=== PATIENT | female | born 1955 | race Caucasian/White ===

== ENCOUNTER 2019-01-26 07:32 | Day surgery (SDC) | payer MEDICARE, BC ==
[2019-01-26] MEDS ORDERED: Sodium Chloride 0.9% 1,000 ML IV SCH (08:00)
[2019-01-26] MEDS ORDERED: fentaNYL 100 MCG/2 ML SDV ONE (09:44)
[2019-01-26] MEDS ORDERED: Propofol 200 MG/20 ML SDV ONE ×2 (09:44→09:59)
[2019-01-26] MEDS ORDERED: Midazolam 1 MG/ML 2 ML SDV ONE (09:44)
[2019-01-26 11:45] VITALS: BP 155/87
--- NOTE | 2019-01-27 10:43 | PROC ---
DATE OF PROCEDURE: 01/26/2019 SURGEON: Tico Acosta MD INDICATION: This is a 63-year-old female, who comes in for a colonoscopy after having a positive Cologuard. The risks and benefits were explained to the patient and was taken to the OR. PROCEDURE IN DETAIL: Anesthesia was given by nurse licensed massage therapist. During the procedure, we used 2 mg of Versed, 2 mcg of fentanyl, and 350 mg of propofol. The Olympus 180AL scope was used, was placed into the rectum and advanced under direct vision. We did get to the cecum. Upon retraction of the tube, we noted a small lesion, 4 mm in size, at the ascending colon area. This was biopsied. The tube was slowly retracted and noted a polyp at the rectum, which was biopsied. This was 4 mm in size as well. There was poor colonic prep with a lot of fluid, took a lot of time to wash out the fluid, and the tube plugged up with food material multiple times. We did get good observation of the entire mucosa throughout the cecum to the rectum. The patient tolerated the procedure well, and the tube was removed. PREOPERATIVE DIAGNOSIS: Positive Cologuard. POSTOPERATIVE DIAGNOSIS: Polyp at mid-ascending and polyp at the rectum. These are very small. The specimens were sent to pathologist. Tico Acosta MD /[id number]
== END 2019-01-26 11:47 | disposition home or self-care (01) ==
LOC: JP.SDS 07:32
PROVIDERS: ATTEND Internal Medicine
DX: D12.2 Benign neoplasm of ascending colon (principal); D12.8 Benign neoplasm of rectum; K58.9 Irritable bowel syndrome, unspecified; E03.9 Hypothyroidism, unspecified; J44.9 Chronic obstructive pulmonary disease, unspecified; F32.9 Major depressive disorder, single episode, unspecified; G43.909 Migraine, unspecified, not intractable, without status migrainosus; M54.9 Dorsalgia, unspecified; Z88.8 Allergy status to other drugs, medicaments and biological substances
CPT/HCPCS: 45380; J2250; J2704; J3010; J7030; 88305

== ENCOUNTER 2023-03-17 06:02 | Inpatient (IN) | payer MEDICARE, BC ==
[2023-03-17] MEDS ORDERED: Nozin Nasal Sanitizer NASBOTH SCH (06:20)
[2023-03-17] MEDS ORDERED: Lactated Ringers 1,000 ML IV SCH (06:30)
[2023-03-17 06:52] LABS: HEMATOCRIT 40.2 % (34.3-46.0); MEAN CORPUSCULAR HEMOGLOBIN 30.4 pg (31.6-35.5); MEAN CORPUSCULAR HGB CONC 32.3 g/dL (31.6-35.5); MEAN CORPUSCULAR VOLUME 94.1 fL (81.4-99.0); RED BLOOD CELL COUNT 4.27 M/uL (3.77-5.24); WHITE BLOOD CELL COUNT,WBC 6.8 K/uL (3.2-11.0)
[2023-03-17] MEDS ORDERED: ceFAZolin 2 GM in Premix Bag 1 BAG IV ONE (07:00)
[2023-03-17 07:14] LABS: A/G RATIO 1.2 (1.2-2.2); ALANINE AMINOTRANSFERASE,ALT 30 U/L (12-78); ALBUMIN 3.7 g/dL (3.4-5.0); ALKALINE PHOSPHATASE 100 U/L (46-116); ANION GAP 10.7 mmol/L (5.0-14.0); ASPARTATE AMNIOTRANSFERASE,AST 17 U/L (15-37); BILIRUBIN TOTAL 0.4 mg/dL (0.2-1.0); BLOOD UREA NITROGEN,BUN 14 mg/dL (7-18); CARBON DIOXIDE,CO2 26 mmol/L (21-32); CHLORIDE,CL 106 mmol/L (100-108); CREATININE 0.8 mg/dL (0.6-1.0); EST CRCL DRUG DOSING (CG) 65.75 mL/min; ESTIMATED GFR 80 mL/min (>60); GLUCOSE RANDOM 94 mg/dL (74-106); POTASSIUM,K 3.6 mmol/L (3.6-5.2); PROTEIN TOTAL,TP 6.8 g/dL (6.4-8.2); SODIUM,NA 143 mmol/L (140-148)
[2023-03-17] MEDS ORDERED: Midazolam 1 MG/ML 2 ML SDV ONE (07:22)
[2023-03-17] MEDS ORDERED: fentaNYL 100 MCG/2 ML SDV ONE ×2 (07:22→10:16)
[2023-03-17] MEDS ORDERED: Propofol 200 MG/20 ML SDV ONE ×2 (07:23→09:12)
[2023-03-17] MEDS ORDERED: oxyCODONE 5 MG Tab PO PRN (08:03)
[2023-03-17] MEDS ORDERED: Ondansetron 4 MG/2 ML SDV IVPUSH PRN (08:04)
[2023-03-17] MEDS ORDERED: Docusate Sodium 100 MG Cap PO PRN (08:04)
[2023-03-17] MEDS ORDERED: EVOLOCUMAB 420 MG/3.5 ML SQ SCH (08:15)
[2023-03-17] MEDS ORDERED: [UNRECOGNIZED DRUG - OTHER] SQ SCH (08:15)
[2023-03-17] MEDS ORDERED: ceFAZolin 2 GM in Sodium Chloride 0.9% 50 ML IV SCH (08:15)
[2023-03-17] MEDS ORDERED: ESTROGENS CONJUGATED 0.625 MG VAG SCH (08:15)
[2023-03-17] MEDS ORDERED: ePHEDrine 50 MG/ML SDV ONE (09:03)
[2023-03-17] MEDS ORDERED: Lactated Ringers 1,000 ML ONE (09:03)
[2023-03-17] MEDS ORDERED: Sodium Chloride 0.9% 10 ML ONE (09:03)
[2023-03-17] MEDS: Sodium Chloride 0.9% 1,000 ML IV SCH ×2 (11:46→20:28)
[2023-03-17] MEDS: DULoxetine 30 MG Cap PO SCH (12:46)
[2023-03-17] MEDS: Acetaminophen 325 MG Tab PO SCH ×3 (12:46→23:15)
[2023-03-17] MEDS: Ketorolac 15 MG/ML SDV IVPUSH PRN (14:05)
[2023-03-17] MEDS: cefTRIAXone 1 GM in Sodium Chloride 0.9% 50 ML IV SCH (14:11)
[2023-03-17] MEDS: Gabapentin 100 MG Cap PO SCH ×2 (14:11→20:11)
[2023-03-17] MEDS: oxyCODONE 5 MG Tab PO PRN ×2 (17:10→23:15)
[2023-03-17] MEDS: Nozin Nasal Sanitizer NASBOTH SCH (20:09)
[2023-03-17] MEDS: Arformoterol 15 MCG/2 ML Neb Soln INH SCH (20:11)
[2023-03-17] MEDS: Budesonide 0.5 MG/2 ML Neb Susp INH SCH (20:11)
[2023-03-17] MEDS: Aspirin 325 MG Tab.EC PO SCH (20:11)
[2023-03-17] MEDS: buPROPion 150 MG Tab.SR PO SCH (20:12)
[2023-03-18] MEDS: Ketorolac 15 MG/ML SDV IVPUSH PRN ×2 (01:52→10:27)
[2023-03-18] MEDS: Sodium Chloride 0.9% 1,000 ML IV SCH (04:35)
[2023-03-18 04:40] LABS: HEMOGLOBIN 10.4 g/dL (11.2-15.5); MEAN CORPUSCULAR HEMOGLOBIN 30.6 pg (31.6-35.5); MEAN CORPUSCULAR HGB CONC 32.5 g/dL (31.6-35.5); MEAN CORPUSCULAR VOLUME 94.1 fL (81.4-99.0); RED BLOOD CELL COUNT 3.4 M/uL (3.77-5.24); WHITE BLOOD CELL COUNT,WBC 9.9 K/uL (3.2-11.0)
[2023-03-18] MEDS: Acetaminophen 325 MG Tab PO SCH ×4 (05:39→23:30)
[2023-03-18] MEDS: oxyCODONE 5 MG Tab PO PRN ×4 (05:40→23:37)
[2023-03-18] MEDS: Arformoterol 15 MCG/2 ML Neb Soln INH SCH ×2 (09:01→21:00)
[2023-03-18] MEDS: Budesonide 0.5 MG/2 ML Neb Susp INH SCH ×2 (09:01→20:58)
[2023-03-18] MEDS: Aspirin 325 MG Tab.EC PO SCH ×2 (09:36→20:58)
[2023-03-18] MEDS: Nozin Nasal Sanitizer NASBOTH SCH ×2 (09:36→20:58)
[2023-03-18] MEDS: buPROPion 150 MG Tab.SR PO SCH ×2 (09:36→21:00)
[2023-03-18] MEDS: DULoxetine 30 MG Cap PO SCH (09:37)
[2023-03-18] MEDS: Lisinopril 10 MG Tab PO SCH (09:37)
[2023-03-18] MEDS: Gabapentin 100 MG Cap PO SCH ×3 (09:37→20:59)
[2023-03-18] MEDS: Calcium Carbonate/Vitamin D3 1500 MG-400 Units Tab PO SCH (09:40)
[2023-03-18] MEDS: cefTRIAXone 1 GM in Sodium Chloride 0.9% 50 ML IV SCH (14:42)
[2023-03-19] MEDS: Acetaminophen 325 MG Tab PO SCH ×3 (05:41→18:17)
[2023-03-19] MEDS: oxyCODONE 5 MG Tab PO PRN ×3 (06:16→21:42)
[2023-03-19] MEDS: Nozin Nasal Sanitizer NASBOTH SCH ×2 (08:12→20:24)
[2023-03-19] MEDS: Lisinopril 10 MG Tab PO SCH (08:13)
[2023-03-19] MEDS: Aspirin 325 MG Tab.EC PO SCH ×2 (08:13→20:22)
[2023-03-19] MEDS: Calcium Carbonate/Vitamin D3 1500 MG-400 Units Tab PO SCH (08:13)
[2023-03-19] MEDS: Gabapentin 100 MG Cap PO SCH ×3 (08:13→20:22)
[2023-03-19] MEDS: DULoxetine 30 MG Cap PO SCH (08:13)
[2023-03-19] MEDS: buPROPion 150 MG Tab.SR PO SCH ×2 (08:13→20:23)
[2023-03-19] MEDS: Arformoterol 15 MCG/2 ML Neb Soln INH SCH ×2 (08:44→20:24)
[2023-03-19] MEDS: Budesonide 0.5 MG/2 ML Neb Susp INH SCH ×2 (08:45→20:27)
[2023-03-19] MEDS: cefTRIAXone 1 GM in Sodium Chloride 0.9% 50 ML IV SCH (14:40)
[2023-03-20] MEDS: Acetaminophen 325 MG Tab PO SCH ×3 (00:18→13:23)
[2023-03-20 05:23] VITALS: BP 134/60
[2023-03-20] MEDS: Arformoterol 15 MCG/2 ML Neb Soln INH SCH (09:00)
[2023-03-20] MEDS: Budesonide 0.5 MG/2 ML Neb Susp INH SCH (09:00)
[2023-03-20 09:01] VITALS: PULSE 70
[2023-03-20] MEDS: Nozin Nasal Sanitizer NASBOTH SCH (09:56)
[2023-03-20] MEDS: Calcium Carbonate/Vitamin D3 1500 MG-400 Units Tab PO SCH (09:57)
[2023-03-20] MEDS: Aspirin 325 MG Tab.EC PO SCH (09:57)
[2023-03-20] MEDS: Lisinopril 10 MG Tab PO SCH (09:57)
[2023-03-20] MEDS: DULoxetine 30 MG Cap PO SCH (09:57)
[2023-03-20] MEDS: Gabapentin 100 MG Cap PO SCH ×2 (09:57→13:23)
[2023-03-20] MEDS: buPROPion 150 MG Tab.SR PO SCH (09:58)
[2023-03-20] MEDS: oxyCODONE 5 MG Tab PO PRN (10:41)
[2023-03-20] MEDS ORDERED: cefTRIAXone 1 GM Vial IM ONE (14:00)
== END 2023-03-20 15:04 | disposition home health service (06) | DRG 470 ==
LOC: JP.SDS 06:02 → JP.MS 08:04 → JP.SDS 08:15 → JP.MS 14:29
PROVIDERS: ADMIT Specialist; ATTEND Specialist
PROC: 0SR90JA Replacement of Right Hip Joint with Synthetic Substitute, Uncemented, Open Approach (ICD-10-PCS; principal; 2023-03-17)
DX: M16.11 Unilateral primary osteoarthritis, right hip (principal); I10 Essential (primary) hypertension; J44.9 Chronic obstructive pulmonary disease, unspecified; G47.33 Obstructive sleep apnea (adult) (pediatric); E66.9 Obesity, unspecified; E78.5 Hyperlipidemia, unspecified; M79.7 Fibromyalgia; K21.9 Gastro-esophageal reflux disease without esophagitis; E03.9 Hypothyroidism, unspecified; G43.909 Migraine, unspecified, not intractable, without status migrainosus; G25.81 Restless legs syndrome; G89.29 Other chronic pain; M54.50 Low back pain, unspecified; Z98.890 Other specified postprocedural states; Z85.820 Personal history of malignant melanoma of skin; Z79.899 Other long term (current) drug therapy; Z68.34 Body mass index [BMI] 34.0-34.9, adult; Z88.8 Allergy status to other drugs, medicaments and biological substances; Z91.040 Latex allergy status
CPT/HCPCS: 36415; 72170; 72170-26; 80053; 85027; 94640; 97110-GP; 97116-GP; 97161-GP; 97165-GO; 97530-GP; 97535-GO; A9270-GY; C1713; C1776; J0690; J0696; J1885; J2250; J2405; J2704; J3010; J3490; J7030; J7120; J7605

== ENCOUNTER 2024-04-12 08:12 | Day surgery (SDC) | payer MEDICARE, BC ==
[~2024-04-12 08:12] MED LIST: Dexamethasone 4 MG/ML SDV ONE; Glycopyrrolate 0.2 MG/ML 5 ML MDV ONE; Neostigmine Methylsulfate 10 MG/10 ML MDV ONE; Ondansetron 4 MG/2 ML SDV ONE; Propofol 200 MG/20 ML SDV ONE; Rocuronium 50 MG/5 ML Vial ONE; Succinylcholine 200 MG/10 ML MDV ONE; fentaNYL 250 MCG/5 ML SDV ONE
[2024-04-12] MEDS: Lactated Ringers 1,000 ML IV SCH (09:04)
[2024-04-12] MEDS: Nozin Nasal Sanitizer NASBOTH ONE (09:42)
[2024-04-12] MEDS: ceFAZolin 2 GM in Premix Bag 1 BAG IV ONE (10:00)
[2024-04-12] MEDS ORDERED: Lactated Ringers 1,000 ML ONE (10:32)
[2024-04-12] MEDS: Bupivacaine 0.5% 50 ML MDV ONE (10:37)
[2024-04-12] MEDS ORDERED: Docusate Sodium 100 MG Cap PO PRN (11:18)
[2024-04-12] MEDS ORDERED: Ondansetron 4 MG/2 ML SDV IVPUSH PRN (11:18)
[2024-04-12] MEDS ORDERED: Albuterol 6.7 GM Inhaler INH PRN (11:21)
[2024-04-12] MEDS ORDERED: Sodium Chloride 0.9% 1,000 ML IV SCH (11:30)
[2024-04-12] MEDS ORDERED: EVOLOCUMAB 420 MG/3.5 ML SQ SCH (11:30)
[2024-04-12] MEDS ORDERED: [UNRECOGNIZED DRUG - OTHER] SQ SCH (11:30)
[2024-04-12] MEDS ORDERED: ESTROGENS CONJUGATED 0.625 MG VAG SCH (11:30)
[2024-04-12] MEDS: Morphine 2 MG/ML SYRINGE IVPUSH ONE (11:44)
[2024-04-12] MEDS: traMADol 50 MG Tab PO PRN (12:36)
[2024-04-12] MEDS: Ketorolac 15 MG/ML SDV IVPUSH ONE (15:12)
[2024-04-12] MEDS: Gabapentin 100 MG **PTOM PO SCH (15:13)
[2024-04-12] MEDS: Acetaminophen 325 MG Tab PO SCH (15:13)
[2024-04-12] MEDS: Acetaminophen/HYDROcodone 325-5 MG Tab PO PRN (16:56)
[2024-04-12 17:03] VITALS: BP 132/64; PULSE 69
[2024-04-12] MEDS ORDERED: Non-Formulary Medication 1 Each (Estrogens, Conjugated [Premarin Vaginal Crm] 30 GM Tube) VAG SCH (21:00)
[2024-04-12] MEDS ORDERED: Arformoterol 15 MCG/2 ML Neb Soln INH SCH ×2 (21:00)
[2024-04-12] MEDS ORDERED: Nozin Nasal Sanitizer NASBOTH SCH (21:00)
[2024-04-12] MEDS ORDERED: Lisinopril 10 MG Tab PO SCH (21:00)
[2024-04-13] MEDS ORDERED: DULOXETINE 60 MG PO SCH (09:00)
[2024-04-13] MEDS ORDERED: DULoxetine 30 MG Cap PO SCH (09:00)
[2024-04-13] MEDS ORDERED: BUPROPION 200 MG PO SCH (09:00)
[2024-04-13] MEDS ORDERED: Aspirin 325 MG Tab.EC PO SCH (09:00)
== END 2024-04-12 17:50 | disposition home or self-care (01) ==
LOC: JP.SDS 08:12 → JP.MS 11:18 → JP.SDS 17:50
PROVIDERS: ATTEND Specialist
DX: M67.841 Other specified disorders of synovium, right hand (principal); I10 Essential (primary) hypertension; G47.10 Hypersomnia, unspecified; K21.9 Gastro-esophageal reflux disease without esophagitis; G89.29 Other chronic pain
CPT/HCPCS: 01250; 27299; A9270; J0330; J0665; J0690; J1100; J1596; J1885; J2270; J2405; J2704; J2710; J3010; J7120; 29877; J3490